=== PATIENT | female | born 1940 | race Caucasian/White ===

== ENCOUNTER → 2016-10-22 | Outpatient (CLI) | payer MEDICARE, MEDICAID ==
[~2016-10-22] VITALS: Ht 167.6 cm; Wt 83.9 kg
[~2016-10-22] MED LIST: ALBU17IN INH; AMLO5TAB2 PO; ASPI1TAB PO; ATOR1TAB21 PO; CRAN600T PO; FISH1000 PO; LEVO25TA5 PO; LIDOCAINE 2% INJ 100 MG/5 ML SDV (FOR ANES.) As Ordered ONE; LISI40TAB PO; MULT1TAB10 PO; NS 1,000 ML IV SCH; PROPOFOL 500 MG/50 ML VIAL As Ordered ONE
--- NOTE | 2016-10-22 09:06 | ROOR ---
Patient Name: Karolyn Lazo Procedure Date: 10/22/2016 8:49 AM Date of : 1940 Age: 76 Room: [facility] Gender: Female Note Status: Finalized Procedure: Colonoscopy Indications: High risk colon cancer surveillance: Personal history of colonic polyps, Last colonoscopy: November 2009 Providers: Chinmay GOLD MD Referring MD: BHARATH TRENT NP Requesting Provider: Medicines: Monitored Anesthesia Care Complications: No immediate complications. Procedure: Pre-Anesthesia Assessment: - The heart rate, respiratory rate, oxygen saturations, blood pressure, adequacy of pulmonary ventilation, and response to care were monitored throughout the procedure. The Colonoscope was introduced through the anus and advanced to the terminal ileum, with identification of the appendiceal orifice and IC valve. The colonoscopy was performed without difficulty. The patient tolerated the procedure well. The quality of the bowel preparation was good. Findings: The perianal and digital rectal examinations were normal. Two sessile polyps were found in the splenic flexure. The polyps were diminutive in size. These polyps were removed with a cold snare. Resection and retrieval were complete. A few medium-mouthed diverticula were found in the sigmoid colon. Small Internal Hemorrhoids. The exam was otherwise without abnormality on direct and retroflexion views. Impression: - Two diminutive polyps at the splenic flexure, removed with a cold snare. Resected and retrieved. - Moderate diverticulosis in the sigmoid colon. - Small Internal Hemorrhoids. - The examination was otherwise normal on direct and retroflexion views. Recommendation: - If the pathology report reveals adenomatous tissue, then repeat the colonoscopy for surveillance in 5 years. - If the pathology report indicates hyperplastic polyp, then repeat colonoscopy for screening purposes in 10 years. - Telephone endoscopist for pathology results in 2 weeks. Chinmay Gold MD Chinmay GOLD MD 10/22/2016 9:06:37 AM This report has been signed electronically. Number of Addenda: 0 Note Initiated On: 10/22/2016 8:49 AM Estimated Blood Loss: Estimated blood loss: none.
[2016-10-22 09:28] VITALS: BP 156/80
== END | disposition home or self-care (01) ==
LOC: M OPP 08:12
PROVIDERS: ATTEND Internal Medicine Gastroenterology
DX: Z12.11 Encounter for screening for malignant neoplasm of colon (principal); D12.3 Benign neoplasm of transverse colon; K57.30 Diverticulosis of large intestine without perforation or abscess without bleeding; K64.8 Other hemorrhoids; Z86.010 Personal history of colon polyps; I10 Essential (primary) hypertension; E78.5 Hyperlipidemia, unspecified; E03.9 Hypothyroidism, unspecified; R06.02 Shortness of breath; Z78.0 Asymptomatic menopausal state; J45.909 Unspecified asthma, uncomplicated; R06.83 Snoring; Z87.442 Personal history of urinary calculi

== ENCOUNTER → 2017-08-15 | Outpatient (REF) | payer MEDICARE, MEDICAID ==
[2017-08-15 19:03] LABS: ALBUMIN 4.4 GM/DL (3.2-5.2); ALBUMIN/GLOBULIN RATIO 1.19 (1.00-1.93); ALKALINE PHOSPHATASE 84 U/L (45-117); ALT/SGPT 21 U/L (12-78); ANION GAP 8 MEQ/L (8-16); AST/SGOT 16 U/L (7-37); BILIRUBIN,TOTAL 0.8 MG/DL (0.2-1.0); BLOOD UREA NITROGEN 14 MG/DL (7-18); CALCIUM LEVEL 8.9 MG/DL (8.8-10.2); CARBON DIOXIDE LEVEL 28 MEQ/L (21-32); CHLORIDE LEVEL 105 MEQ/L (98-107); CHOLESTEROL LEVEL 153 MG/DL (<200); CHOLESTEROL RISK RATIO 2.781 (<5); CREATININE FOR GFR 1.13 MG/DL (0.55-1.30); GLOMERULAR FILTRATION RATE 49.7 (>39); GLUCOSE, FASTING 89 MG/DL (70-100); HDL CHOLESTEROL 55 MG/DL (>40); LDL CHOLESTEROL 73.4 MG/DL (<100); NON-HDL-C 98 MG/DL; POTASSIUM SERUM 4.3 MEQ/L (3.5-5.1); SODIUM LEVEL 141 MEQ/L (136-145); TOTAL PROTEIN 8.1 GM/DL (6.4-8.2); TRIGLYCERIDES LEVEL 123 MG/DL (<150)
== END ==
LOC: M SFHCCLAY 10:47
DX: I10 Essential (primary) hypertension (principal); E78.2 Mixed hyperlipidemia; E03.9 Hypothyroidism, unspecified
CPT/HCPCS: 84443

== ENCOUNTER → 2018-08-17 | Outpatient (REF) | payer MEDICARE, MEDICAID ==
[~2018-08-17] MED LIST changes: -AMLO5TAB2 PO; +AMLO5TAB6 PO; -LIDOCAINE 2% INJ 100 MG/5 ML SDV (FOR ANES.) As Ordered ONE; +LISI40TA PO; -LISI40TAB PO; -NS 1,000 ML IV SCH; -PROPOFOL 500 MG/50 ML VIAL As Ordered ONE
[2018-08-17 18:12] LABS: ALBUMIN 4.3 GM/DL (3.2-5.2); BILIRUBIN,TOTAL 0.6 MG/DL (0.2-1.0); CALCIUM LEVEL 8.5 MG/DL (8.8-10.2); CHOLESTEROL RISK RATIO 3.28 (<5); CREATININE FOR GFR 1.33 MG/DL (0.55-1.30); GLOMERULAR FILTRATION RATE 41.1 (>39); POTASSIUM SERUM 4.8 MEQ/L (3.5-5.1); THYROID STIMULATING HORMONE 3.55 uIU/ML (0.358-3.740); TOTAL PROTEIN 8.2 GM/DL (6.4-8.2)
== END ==
LOC: M SFHCCLAY 13:21
PROVIDERS: ATTEND Family Medicine
DX: I10 Essential (primary) hypertension (principal); E78.2 Mixed hyperlipidemia; E03.9 Hypothyroidism, unspecified
CPT/HCPCS: 80053; 80061; 84443; G0463

== ENCOUNTER → 2019-08-21 | Outpatient (REF) | payer MEDICARE, MEDICAID ==
[~2019-08-21] MED LIST changes: -ASPI1TAB PO; +ASPI81TA26 PO
[2019-08-21 12:21] LABS: ALBUMIN 3.9 GM/DL (3.2-5.2); BILIRUBIN,TOTAL 0.7 MG/DL (0.2-1.0); CALCIUM LEVEL 9.4 MG/DL (8.8-10.2); CHOLESTEROL RISK RATIO 3.583 (<5); CREATININE FOR GFR 1.26 MG/DL (0.55-1.30); GLOMERULAR FILTRATION RATE 43.6 (>39); POTASSIUM SERUM 4.3 MEQ/L (3.5-5.1); THYROID STIMULATING HORMONE 4.49 uIU/ML (0.358-3.740); TOTAL PROTEIN 7.6 GM/DL (6.4-8.2)
== END ==
LOC: M SFHCCLAY 08:11
PROVIDERS: ATTEND Family Medicine
DX: E78.2 Mixed hyperlipidemia (principal); E03.9 Hypothyroidism, unspecified

== ENCOUNTER → 2020-01-16 | Outpatient (REF) | payer MEDICARE, MEDICAID ==
[~2020-01-16] MED LIST changes: +AMLO1TAB24 PO; -AMLO5TAB6 PO
== END ==
LOC: M SFHCCLAY 11:27
PROVIDERS: ATTEND Family Medicine
DX: E03.9 Hypothyroidism, unspecified (principal)

== ENCOUNTER → 2020-03-27 | Outpatient (REF) | payer MEDICARE, MEDICAID | LOC: M SFHCCLAY 11:03 | PROVIDERS: ATTEND Family Medicine | DX: I10 Essential (primary) hypertension (principal); Z23 Encounter for immunization | CPT/HCPCS: 84443; 90682; G0008; G0463 ==

== ENCOUNTER → 2020-08-20 | Outpatient (CLI) | payer MEDICARE, MEDICAID ==
[~2020-08-20] MED LIST changes: -LISI40TA PO; +LISI40TA4 PO
== END ==
LOC: M LABSMTC 12:12
PROVIDERS: ATTEND Anesthesiology
DX: Z01.812 Encounter for preprocedural laboratory examination (principal); Z20.822 Contact with and (suspected) exposure to COVID-19

== ENCOUNTER 2020-08-25 07:46 | Day surgery (SDC) | payer MEDICARE, MEDICAID ==
[~2020-08-25] VITALS: Ht 167.6 cm; Wt 79.3 kg
[~2020-08-25 07:46] MED LIST changes: +CEFUROXIME 1MG/0.1ML INTRACAMERAL INJ As Ordered ONE; +DUOVISC (0.50ML VISCOAT/0.55ML PROVISC) OPHTH KIT As Ordered ONE; +MIDAZOLAM INJ 2MG/2ML VIAL (J2250 PER 1MG) As Ordered ONE; +OFLOXACIN 0.3 % (OCUFLOX) OPTH SOL 5ML OD ONE; +PHENYLEPHRINE 2.5% OPHTH SOL 2ML OD ONE; +POVIDONE-IODINE 5% OPHTH PREP SOL 30ML As Ordered ONE; +PROPARACAINE 0.5% OPHTH SOL 15ML OD ONE; +TROPICAMIDE 1% OPHTH SOLN 2ML OD ONE; +fentaNYL 100 MCG/2 ML INJECTION (J3010) As Ordered ONE
[2020-08-25] MEDS ORDERED: BSS IRR 500ML/OMIDRIA 4ML IRR BAG (OR ONLY) As Ordered ONE (09:27)
[2020-08-25] MEDS ORDERED: ACETYLCHOLINE OPHTH SOLN 1% 2ML (MIOCHOL-E) As Ordered ONE (10:28)
[2020-08-25 11:05] VITALS: BP 121/88
--- NOTE | 2020-08-26 13:15 | RO ---
OPERATIVE NOTE DATE OF OPERATION: 08/25/2020 PREOPERATIVE DIAGNOSES: 1. Presence of intraocular lens implant. 2. Status post cataract surgery and placement of intraocular lens implant of the right eye. POSTOPERATIVE DIAGNOSES: 1. Presence of intraocular lens implant. 2. Status post cataract surgery and placement of intraocular lens implant of the right eye. PROCEDURES: 1. Intraocular lens exchange of the right eye, placement of an AU00T0 17.5 D. SURGEON: Rodolfo Camargo DO. SUTURE POLISHER: ANESTHESIA: Local with MAC. DESCRIPTION OF PROCEDURE: The patient was seen and identified in the preoperative area. The consent was reviewed, and surgical site was marked. The patient received topical antibiotics, anesthetics, and dilating drops in the surgical eye. The patient was transferred to the operating room. The eye was prepped and draped in the sterile fashion. Tegaderm was used to isolate the upper and lower eyelids, and wire lid speculum was placed. A 1.0 mm inferior and superior paracentesis were made. Temporal clear corneal incision was then opened with a blunt spatula. Omidria was injected, and then viscoelastic was injected in the anterior chamber. Using viscoelastic on a 30 gauge needle, the anterior capsulotomy was elevated from the anterior optic of the intraocular lens 360 degrees. A cannula was then used to dissect the intraocular lens from the capsular bag, and viscoelastic was then injected into the capsular bag. Cohesive viscoelastic was injected beneath the intraocular lens implant. The intraocular lens implant was demonstrated to rotate 360 degrees, and it was then elevated into the anterior chamber. The new AU00T0 17.5 diopter lens was injected into the capsular bag. The pre-existing intraocular lens implant was bisected and removed from the temporal clear corneal incision. Irrigation and aspiration was used to remove all viscoelastic. Miochol was placed showing a round, small pupil. ReSure was placed over the temporal clear corneal incision. BSS was used to reinflate the anterior chamber and titrate it for appropriate intraocular pressure. Intraocular antibiotics were injected. Wepatricio Spear was used to check for any leaks, none were found. Patient was discharged to the PACU in stable condition.
== END 2020-08-25 11:05 | disposition home or self-care (01) ==
LOC: M SDC 07:46
PROVIDERS: ATTEND Ophthalmology
DX: H52.31 Anisometropia (principal); I10 Essential (primary) hypertension; E78.5 Hyperlipidemia, unspecified; E03.9 Hypothyroidism, unspecified; J45.909 Unspecified asthma, uncomplicated; Z79.82 Long term (current) use of aspirin; Z79.899 Other long term (current) drug therapy
CPT/HCPCS: 66986; J1097; J2250; J3010; V2632

== ENCOUNTER → 2020-09-22 | Outpatient (REF) | payer MEDICARE, MEDICAID ==
[~2020-09-22] MED LIST changes: -CEFUROXIME 1MG/0.1ML INTRACAMERAL INJ As Ordered ONE; -DUOVISC (0.50ML VISCOAT/0.55ML PROVISC) OPHTH KIT As Ordered ONE; -MIDAZOLAM INJ 2MG/2ML VIAL (J2250 PER 1MG) As Ordered ONE; -OFLOXACIN 0.3 % (OCUFLOX) OPTH SOL 5ML OD ONE; -PHENYLEPHRINE 2.5% OPHTH SOL 2ML OD ONE; -POVIDONE-IODINE 5% OPHTH PREP SOL 30ML As Ordered ONE; -PROPARACAINE 0.5% OPHTH SOL 15ML OD ONE; -TROPICAMIDE 1% OPHTH SOLN 2ML OD ONE; -fentaNYL 100 MCG/2 ML INJECTION (J3010) As Ordered ONE
[2020-09-22 12:54] LABS: ALBUMIN 3.9 GM/DL (3.2-5.2); BILIRUBIN,TOTAL 0.7 MG/DL (0.2-1.0); CHOLESTEROL RISK RATIO 3.358 (<5); CREATININE FOR GFR 1.19 MG/DL (0.55-1.30); GLOMERULAR FILTRATION RATE 46.5 (>32); POTASSIUM SERUM 4.2 MEQ/L (3.5-5.1); THYROID STIMULATING HORMONE 3.08 uIU/ML (0.358-3.740); TOTAL PROTEIN 7.6 GM/DL (6.4-8.2)
== END ==
LOC: M SFHCCLAY 07:30
PROVIDERS: ATTEND Family Medicine
DX: E78.2 Mixed hyperlipidemia (principal); E03.9 Hypothyroidism, unspecified

== ENCOUNTER → 2021-08-28 | Outpatient (REF) | payer MEDICARE, MEDICAID ==
[2021-08-28 11:36] LABS: BASO # 0.1 10^3/uL (0.0-0.2); BASO % 0.7 % (0.0-1.0); EOS # 0.1 10^3/uL (0.0-0.5); EOS % 1.6 % (0.0-3.0); HEMATOCRIT 41.8 % (36.0-47.0); HEMOGLOBIN 13.8 g/dl (12.0-15.5); LYMPH # 2.9 10^3/uL (1.5-5.0); LYMPH % 39.9 % (24.0-44.0); MEAN CORPUSCULAR HEMOGLOBIN 30.3 pg (27.0-33.0); MEAN CORPUSCULAR VOLUME 91.7 fl (80.0-96.0); MONO # 0.7 10^3/uL (0.0-0.8); MONO % 9.2 % (2.0-8.0); NEUTROPHILS # 3.5 10^3/uL (1.5-8.5); NEUTROPHILS % 48.2 % (36.0-66.0); PLATELET COUNT, AUTOMATED 251 10^3/uL (150-450); RED BLOOD COUNT 4.56 10^6/uL (4.00-5.40); WHITE BLOOD COUNT 7.4 10^3/uL (4.0-10.0)
[2021-08-28 12:16] LABS: BILIRUBIN,TOTAL 0.6 MG/DL (0.2-1.0); CALCIUM LEVEL 9.1 MG/DL (8.8-10.2); CHOLESTEROL RISK RATIO 3.543 (<5); CREATININE FOR GFR 1.1 MG/DL (0.55-1.30); GLOMERULAR FILTRATION RATE 50.7 (>32); POTASSIUM SERUM 4.3 MEQ/L (3.5-5.1); THYROID STIMULATING HORMONE 2.46 uIU/ML (0.358-3.740); TOTAL PROTEIN 7.5 GM/DL (6.4-8.2)
== END ==
LOC: M SFHCCLAY 07:20
PROVIDERS: ATTEND Family Medicine
DX: I10 Essential (primary) hypertension (principal); E78.2 Mixed hyperlipidemia; E03.9 Hypothyroidism, unspecified

== ENCOUNTER → 2022-02-23 | Outpatient (REF) | payer MEDICARE, MEDICAID ==
[2022-02-23 16:14] LABS: ALBUMIN 4.4 GM/DL (3.2-5.2); BILIRUBIN,TOTAL 0.7 MG/DL (0.2-1.0); CALCIUM LEVEL 9.2 MG/DL (8.8-10.2); CREATININE FOR GFR 1.09 MG/DL (0.55-1.30); GLOMERULAR FILTRATION RATE 51.3 (>32)
== END ==
LOC: M LABDRAWC 15:00
PROVIDERS: ATTEND Orthopaedic Surgery
DX: S42.292G Other displaced fracture of upper end of left humerus, subsequent encounter for fracture with delayed healing (principal)

== ENCOUNTER → 2022-03-04 | Outpatient (REF) | payer MEDICARE, MEDICAID ==
[2022-03-04 18:15] LABS: ALBUMIN 3.6 GM/DL (3.2-5.2); BILIRUBIN,TOTAL 0.6 MG/DL (0.2-1.0); CREATININE FOR GFR 1.05 MG/DL (0.55-1.30); GLOMERULAR FILTRATION RATE 53.5 (>32); MAGNESIUM LEVEL 2.2 MG/DL (1.8-2.4); POTASSIUM SERUM 4.5 MEQ/L (3.5-5.1); THYROID STIMULATING HORMONE 4.56 uIU/ML (0.358-3.740); TOTAL PROTEIN 7.4 GM/DL (6.4-8.2)
[2022-03-04 18:46] LABS: PTH INTACT 37.4 PG/ML (18.5-88.0)
== END ==
LOC: M LABDRAWC 16:39
PROVIDERS: ATTEND Orthopaedic Surgery
DX: S42.292G Other displaced fracture of upper end of left humerus, subsequent encounter for fracture with delayed healing (principal)

== ENCOUNTER → 2022-06-10 | Outpatient (REF) | payer MEDICARE, MEDICAID | LOC: M SFHCCLAY 13:52 | PROVIDERS: ATTEND Family Medicine | DX: E03.9 Hypothyroidism, unspecified (principal) ==

== ENCOUNTER → 2022-08-31 | Outpatient (REF) | payer MEDICARE, MEDICAID ==
[2022-08-31 19:04] LABS: CALCIUM LEVEL 9.3 MG/DL (8.3-10.6)
[2022-08-31 19:09] LABS: TOTAL 25(OH) VITAMIN D 58.7 NG/ML (20.0-100.0)
== END ==
LOC: M LABDRAWC 16:49
PROVIDERS: ATTEND Internal Medicine Endocrinology, Diabetes & Metabolism
DX: M81.0 Age-related osteoporosis without current pathological fracture (principal); S42.291G Other displaced fracture of upper end of right humerus, subsequent encounter for fracture with delayed healing

== ENCOUNTER → 2022-09-24 | Outpatient (REF) | payer MEDICARE, MEDICAID ==
[2022-09-24 18:40] LABS: HEMATOCRIT 38.1 % (36.0-47.0); HEMOGLOBIN 12.3 g/dl (12.0-15.5); MEAN CORPUSCULAR HEMOGLOBIN 29.6 pg (27.0-33.0); MEAN CORPUSCULAR HGB CONC 32.3 g/dl (32.0-36.5); MEAN CORPUSCULAR VOLUME 91.8 fl (80.0-96.0); PLATELET COUNT, AUTOMATED 307 10^3/uL (150-450); RED BLOOD COUNT 4.15 10^6/uL (4.00-5.40); WHITE BLOOD COUNT 8.2 10^3/uL (4.0-10.0)
[2022-09-24 19:11] LABS: FREE T4 1.19 NG/DL (0.89-1.76); THYROID STIMULATING HORMONE 2.647 uIU/ML (0.55-4.78)
[2022-09-24 19:13] LABS: ALBUMIN 3.9 G/DL (3.2-5.2); BILIRUBIN,TOTAL 0.5 MG/DL (0.3-1.2); CALCIUM LEVEL 9.6 MG/DL (8.3-10.6); CHOLESTEROL RISK RATIO 3.76 (<5); CREATININE FOR GFR 1.71 MG/DL (0.55-1.30); GLOMERULAR FILTRATION RATE 30.4 (>32); HDL CHOLESTEROL 38.8 MG/DL (>40); LDL CHOLESTEROL 65.6 MG/DL (<100); MAGNESIUM LEVEL 1.5 MG/DL (1.8-2.4); NON-HDL-C 107.2 MG/DL
== END ==
LOC: M SFHCCLAY 14:26
PROVIDERS: ATTEND Family Medicine
DX: E78.2 Mixed hyperlipidemia (principal); I10 Essential (primary) hypertension; E03.9 Hypothyroidism, unspecified

== ENCOUNTER → 2022-10-26 | Outpatient (REF) | payer MEDICARE, MEDICAID ==
[2022-10-26 13:02] LABS: BASO % 0.6 % (0.0-1.0); EOS # 0.1 10^3/uL (0.0-0.5); EOS % 1.6 % (0.0-3.0); HEMATOCRIT 39.4 % (36.0-47.0); LYMPH % 28.9 % (24.0-44.0); MEAN CORPUSCULAR HEMOGLOBIN 29.9 pg (27.0-33.0); MEAN CORPUSCULAR VOLUME 90.6 fl (80.0-96.0); MONO # 0.6 10^3/uL (0.0-0.8); MONO % 8.3 % (2.0-8.0); NEUTROPHILS # 4.1 10^3/uL (1.5-8.5); NEUTROPHILS % 60.5 % (36.0-66.0); PLATELET COUNT, AUTOMATED 286 10^3/uL (150-450); RED BLOOD COUNT 4.35 10^6/uL (4.00-5.40); WHITE BLOOD COUNT 6.7 10^3/uL (4.0-10.0)
[2022-10-26 13:12] LABS: APPEARANCE, URINE HAZY (CLEAR); BACTERIA, URINE AUTO NEGATIVE (NEGATIVE); BILIRUBIN, URINE AUTO NEGATIVE (NEGATIVE); BLOOD, URINE BLOOD NEGATIVE (NEGATIVE); CALCIUM OXALATE CRYSTALS SMALL; COLOR, URINE YELLOW (YELLOW); GLUCOSE, URINE (UA) AUTO NEGATIVE (NEGATIVE); KETONE, URINE AUTO NEGATIVE (NEGATIVE); LEUKOCYTE ESTERASE, URINE AUTO TRACE (NEGATIVE); MUCUS, URINE SMALL (NEGATIVE); NITRITE, URINE AUTO NEGATIVE (NEGATIVE); PROTEIN, URINE AUTO 1+ mg/dL (NEGATIVE); RBC, URINE AUTO 0 /HPF (0-3); SPECIFIC GRAVITY URINE AUTO 1.016 (1.002-1.035); SQUAMOUS EPITHELIAL CELL UR AU 1 /HPF (0-6); UROBILINOGEN, URINE AUTO 0.2 mg/dL (0.0-2.0); WBC, URINE AUTO 5 /HPF (0-3)
[2022-10-26 13:15] LABS: INR 1.07; PROTHROMBIN TIME 14.1 SECONDS (12.5-14.5)
[2022-10-26 13:40] LABS: ALBUMIN 3.9 G/DL (3.2-5.2); BILIRUBIN,TOTAL 0.6 MG/DL (0.3-1.2); CALCIUM LEVEL 9.8 MG/DL (8.3-10.6); CREATININE FOR GFR 1.25 MG/DL (0.55-1.30); GLOMERULAR FILTRATION RATE 43.7 (>32); TOTAL 25(OH) VITAMIN D 71.5 NG/ML (20.0-100.0)
== END ==
LOC: M LABDRAWC 11:57
PROVIDERS: ATTEND Orthopaedic Surgery
DX: Z01.818 Encounter for other preprocedural examination (principal); Z79.899 Other long term (current) drug therapy

== ENCOUNTER → 2023-04-21 | Outpatient (REF) | payer MEDICARE, MEDICAID ==
[2023-04-21 19:21] LABS: CALCIUM LEVEL 11.9 MG/DL (8.3-10.6)
[2023-04-21 19:26] LABS: TOTAL 25(OH) VITAMIN D 95.9 NG/ML (20.0-100.0)
== END ==
LOC: M LABDRAWC 17:42
PROVIDERS: ATTEND Internal Medicine Endocrinology, Diabetes & Metabolism
DX: M81.0 Age-related osteoporosis without current pathological fracture (principal)

== ENCOUNTER → 2023-10-03 | Outpatient (REF) | payer MEDICARE, MEDICAID ==
[2023-10-03 17:37] LABS: HEMATOCRIT 39.4 % (36.0-47.0); HEMOGLOBIN 13.1 g/dl (12.0-15.5); MEAN CORPUSCULAR HEMOGLOBIN 30.5 pg (27.0-33.0); MEAN CORPUSCULAR HGB CONC 33.2 g/dl (32.0-36.5); MEAN CORPUSCULAR VOLUME 91.8 fl (80.0-96.0); PLATELET COUNT, AUTOMATED 302 10^3/uL (150-450); RED BLOOD COUNT 4.29 10^6/uL (4.00-5.40); WHITE BLOOD COUNT 9.4 10^3/uL (4.0-10.0)
[2023-10-03 18:08] LABS: ALBUMIN 4.3 G/DL (3.2-5.2); BILIRUBIN,TOTAL 0.7 MG/DL (0.3-1.2); CHOLESTEROL RISK RATIO 3.92 (<5); CREATININE FOR GFR 1.42 MG/DL (0.55-1.30); FREE T4 1.46 NG/DL (0.89-1.76); GLOMERULAR FILTRATION RATE 37.6 (>32); HDL CHOLESTEROL 36.9 MG/DL (>40); LDL CHOLESTEROL 52.3 MG/DL (<100); MAGNESIUM LEVEL 1.8 MG/DL (1.8-2.4); NON-HDL-C 108.1 MG/DL; POTASSIUM SERUM 4.3 MMOL/L (3.5-5.1); THYROID STIMULATING HORMONE 0.763 uIU/ML (0.55-4.78); TOTAL PROTEIN 7.5 G/DL (5.7-8.2)
== END ==
LOC: M SFHCCLAY 10:52
PROVIDERS: ATTEND Family Medicine
DX: I10 Essential (primary) hypertension (principal); E78.2 Mixed hyperlipidemia; E03.9 Hypothyroidism, unspecified

== ENCOUNTER → 2024-04-02 | Outpatient (REF) | payer MEDICARE, MEDICAID ==
[2024-04-02 17:17] LABS: ALBUMIN 3.8 G/DL (3.2-5.2); BILIRUBIN,TOTAL 0.5 MG/DL (0.3-1.2); CALCIUM LEVEL 11.2 MG/DL (8.3-10.6); CREATININE FOR GFR 1.68 MG/DL (0.55-1.30); POTASSIUM SERUM 4.3 MMOL/L (3.5-5.1); TOTAL PROTEIN 7.7 G/DL (5.7-8.2)
== END ==
LOC: M SFHCCLAY 11:27
PROVIDERS: ATTEND Family Medicine
DX: N18.32 Chronic kidney disease, stage 3b (principal); M81.0 Age-related osteoporosis without current pathological fracture; E55.9 Vitamin D deficiency, unspecified

== ENCOUNTER → 2024-10-16 | Outpatient (REF) | payer MEDICARE, MEDICAID | LOC: M SFHCCLAY 14:15 | PROVIDERS: ATTEND Family Medicine | DX: I10 Essential (primary) hypertension (principal); N18.32 Chronic kidney disease, stage 3b; M81.0 Age-related osteoporosis without current pathological fracture; E03.9 Hypothyroidism, unspecified; E78.2 Mixed hyperlipidemia ==

== ENCOUNTER → 2024-10-23 | Outpatient (REF) | payer MEDICARE, MEDICAID ==
[2024-10-23 18:23] LABS: THYROID STIMULATING HORMONE 1.571 uIU/ML (0.55-4.78)
[2024-10-23 18:24] LABS: FREE T4 1.38 NG/DL (0.89-1.76)
[2024-10-23 18:25] LABS: ALBUMIN 4.1 G/DL (3.2-5.2); BILIRUBIN,TOTAL 0.6 MG/DL (0.3-1.2); CALCIUM LEVEL 9.8 MG/DL (8.3-10.6); CHOLESTEROL RISK RATIO 4.38 (<5); CREATININE FOR GFR 1.37 MG/DL (0.55-1.30); GLOMERULAR FILTRATION RATE 38.1 (>32); HDL CHOLESTEROL 38.5 MG/DL (>40); LDL CHOLESTEROL 80.5 MG/DL (<100); MAGNESIUM LEVEL 1.9 MG/DL (1.8-2.4); NON-HDL-C 130.5 MG/DL; POTASSIUM SERUM 4.3 MMOL/L (3.5-5.1); TOTAL PROTEIN 7.7 G/DL (5.7-8.2)
[2024-10-23 18:29] LABS: HEMATOCRIT 37.7 % (36.0-47.0); HEMOGLOBIN 12.5 g/dl (12.0-15.5); MEAN CORPUSCULAR HEMOGLOBIN 30.7 pg (27.0-33.0); MEAN CORPUSCULAR HGB CONC 33.2 g/dl (32.0-36.5); MEAN CORPUSCULAR VOLUME 92.6 fl (80.0-96.0); PLATELET COUNT, AUTOMATED 302 10^3/uL (150-450); RED BLOOD COUNT 4.07 10^6/uL (4.00-5.40)
== END ==
LOC: M SFHCCLAY 11:04
PROVIDERS: ATTEND Family Medicine
DX: I12.9 Hypertensive chronic kidney disease with stage 1 through stage 4 chronic kidney disease, or unspecified chronic kidney disease (principal); N18.32 Chronic kidney disease, stage 3b; M81.0 Age-related osteoporosis without current pathological fracture; E03.9 Hypothyroidism, unspecified; E78.2 Mixed hyperlipidemia

== ENCOUNTER → 2025-04-25 | Outpatient (CLI) | payer MEDICARE, MEDICAID ==
[~2025-04-25] MED LIST changes: +LISI40TA10 PO; -LISI40TA4 PO
== END ==
LOC: M RAD 11:58
PROVIDERS: ATTEND Orthopaedic Surgery
DX: T84.028A Dislocation of other internal joint prosthesis, initial encounter (principal); Z96.612 Presence of left artificial shoulder joint; Y83.1 Surgical operation with implant of artificial internal device as the cause of abnormal reaction of the patient, or of later complication, without mention of misadventure at the time of the procedure; M97.32XA Periprosthetic fracture around internal prosthetic left shoulder joint, initial encounter

== ENCOUNTER → 2025-04-26 | Outpatient (CLI) | payer MEDICARE, MEDICAID | LOC: M RAD 10:19 | PROVIDERS: ATTEND Orthopaedic Surgery | DX: T84.028D Dislocation of other internal joint prosthesis, subsequent encounter (principal); Y83.1 Surgical operation with implant of artificial internal device as the cause of abnormal reaction of the patient, or of later complication, without mention of misadventure at the time of the procedure ==

== ENCOUNTER → 2025-04-29 | Outpatient (REF) | payer MEDICARE, MEDICAID ==
[2025-04-29 17:47] LABS: APPEARANCE, URINE CLEAR (CLEAR); BACTERIA, URINE AUTO NEGATIVE (NEGATIVE); BILIRUBIN, URINE AUTO NEGATIVE (NEGATIVE); BLOOD, URINE BLOOD NEGATIVE (NEGATIVE); GLUCOSE, URINE (UA) AUTO NEGATIVE (NEGATIVE); KETONE, URINE AUTO NEGATIVE (NEGATIVE); LEUKOCYTE ESTERASE, URINE AUTO NEGATIVE (NEGATIVE); NITRITE, URINE AUTO NEGATIVE (NEGATIVE); PROTEIN, URINE AUTO 1+ mg/dL (NEGATIVE); RBC, URINE AUTO 1 /HPF (0-3); SPECIFIC GRAVITY URINE AUTO 1.012 (1.002-1.035); SQUAMOUS EPITHELIAL CELL UR AU 0 /HPF (0-6); UROBILINOGEN, URINE AUTO 0.2 mg/dL (0.0-2.0); WBC, URINE AUTO 1 /HPF (0-3)
== END ==
LOC: M LABDRAWC 16:44
PROVIDERS: ATTEND Orthopaedic Surgery
DX: T84.028D Dislocation of other internal joint prosthesis, subsequent encounter (principal); Z79.899 Other long term (current) drug therapy

== ENCOUNTER → 2025-05-21 | Outpatient (REF) | payer MEDICARE, MEDICAID ==
[2025-05-21 18:36] LABS: CALCIUM LEVEL 8.4 MG/DL (8.3-10.6); CARBON DIOXIDE LEVEL 28.0 MMOL/L (20-31); CHLORIDE LEVEL 107.0 MMOL/L (98-107); CREATININE FOR GFR 1.29 MG/DL (0.55-1.30); GLOMERULAR FILTRATION RATE 40.7 (>32); POTASSIUM SERUM 4.1 MMOL/L (3.5-5.1); SODIUM LEVEL 144.0 MMOL/L (136-145); TOTAL 25(OH) VITAMIN D 80.4 NG/ML (20.0-100.0)
== END ==
LOC: M LAB REF 17:30 → M LABDRAWC 17:30
PROVIDERS: ATTEND Nurse Practitioner Family
DX: M81.0 Age-related osteoporosis without current pathological fracture (principal)